=== PATIENT | female | born 1950 | race African-American/Black ===

== ENCOUNTER 2016-05-10 08:36 | Emergency (ER) | payer OTHER, BC ==
[~2016-05-10] VITALS: Ht 160 cm; Wt 112.0 kg
[~2016-05-10 08:36] MED LIST: ADALAT CC 60 MG60 MG PO; ADVAIR 250/501 DISK IH; ALLERGY RELIEF10 M5 PO; ASPIR-LOW81 MG PO; ATARAX,VISTARIL25 MG PO; BABY ASPIRIN81 M1 PO; BYSTOLIC10 MG PO; CARDIZEM CD,CA360 MG PO; CARDIZEM30 MG PO; CLONIDINE HCL0.1 MG PO; COREG6.25 M1 PO; CYCLOBENZAPRINE10 MG PO; DIOVAN HCT 3201 EAC1 PO; FLAGYL250 MG PO; GLYBURID-METFO1 EAC3 PO; GLYBURIDE5 MG PO; HYDROCHLOROTHIA25 MG PO; HYDROCODON-ACE1 EAC2 PO; ISOSORBIDE MON120 MG PO; METOPROLOL SUCC50 MG PO; NAPROSYN500 MG PO; NAPROXEN500 MG PO; NIFEDIPINE ER30 MG PO; NORCO 5/3251 TABLET PO; NORMODYNE,TRAN200 MG PO; PERCOCET 5/31 TABLET PO; PROAIR HFA8.5 GM IH; RANITIDINE HCL150 M1 PO; SINGULAIR10 MG PO; SYMBICORT60 INHALAT IH; TRADJENTA5 MG PO; TRANDATE200 MG PO; VALSARTAN320 MG PO; ZOCOR10 MG PO
[2016-05-10 09:42] LABS: HEMATOCRIT 31.7 % (36.0-46.0); MCH 28.9 PG (29.0-34.0); MCHC 31.5 G/DL (30.0-36.0); MCV 91.6 FL (83-99); MEAN PLAT.VOLUME 9.9 uM^3 (9.5-12.4); PLATELET COUNT 234 K/uL (156-360); RBC DIS.WIDTH-CV 14.5 % (11.8-14.6); RBC DIS.WIDTH-SD 46.3 % (39-53); RED BLOOD COUNT 3.46 M/uL (3.80-5.20)
[2016-05-10 09:51] LABS: CHLORIDE 110 mEq/L (99-109); POTASSIUM 4.6 mEq/L (3.7-5.4); SODIUM 141 mEq/L (136-147)
[2016-05-10 09:53] LABS: GLUCOSE 151 mg/dL (70-99)
[2016-05-10 09:55] LABS: ANION GAP 8 MEQ/L (2-14); TOTAL BILIRUBIN 0.3 mg/dL (0.0-1.0)
[2016-05-10 09:57] LABS: ALKALINE PHOSPHATASE 94 IU/L (3-129); GFR ESTIMATE (CALCULATED) 45 mL/min/
[2016-05-10 09:58] LABS: UREA NITROGEN (BUN) 35 mg/dL (9-23)
[2016-05-10 09:59] LABS: ADD MIUA? YES; BILIRUBIN NEGATIVE; BLOOD NEGATIVE; COLOR STRAW ((YELLOW)); GLUCOSE (STRIP) NEGATIVE; KETONES NEGATIVE; LEUKOCYTES NEGATIVE; NITRITE NEGATIVE; PROTEIN (STRIP) 100; SPECIFIC GRAVITY 1.012 (1.000-1.030); UROBILINOGEN 0.2 MG/DL (0.2-1.0)
[2016-05-10 10:00] LABS: LIPASE 24 U/L (1.0-51.0)
[2016-05-10 10:04] LABS: BACTERIA RARE /HPF; EPITHELIAL CELLS 1+ /HPF; MUCUS TRACE /LPF; RED BLOOD CELLS NONE SEEN /HPF (0-5); WHITE BLOOD CELLS 0-5 /HPF (0-5)
[2016-05-10 10:05] LABS: TROP-I INTERPRETATION NEGATIVE; TROPONIN-I < 0.01 ng/mL (0.0-0.30)
[2016-05-10] MEDS ORDERED: HYDROCHLOROTHIA25 MG PO (10:22)
[2016-05-10] MEDS ORDERED: TYLENOL ARTHRI650 MG PO (10:22)
[2016-05-10] MEDS ORDERED: ZOCOR10 MG PO (10:23)
[2016-05-10 12:42] VITALS: BP 215/95
== END 2016-05-10 12:42 | disposition home or self-care (01) ==
LOC: EME → EDBD 08:36 → EME 08:36
PROVIDERS: Emergency Medicine
DX: S20.219A Contusion of unspecified front wall of thorax, initial encounter (principal); S00.81XA Abrasion of other part of head, initial encounter; V49.40XA Driver injured in collision with unspecified motor vehicles in traffic accident, initial encounter; E11.9 Type 2 diabetes mellitus without complications; E78.5 Hyperlipidemia, unspecified; I10 Essential (primary) hypertension; I25.2 Old myocardial infarction
CPT/HCPCS: 71020; 80053; 81003; 83690; 84484; 85027; 93005; 99281; 99285

== ENCOUNTER 2017-08-27 18:12 | Emergency (ER) | payer OTHER, BC ==
[~2017-08-27] VITALS: Ht 162.6 cm; Wt 109.6 kg
[~2017-08-27 18:12] MED LIST changes: +TYLENOL ARTHRI650 MG PO
[2017-08-27 19:14] LABS: HEMATOCRIT 35.6 % (36.0-46.0); HEMOGLOBIN 11.7 G/DL (11.9-15.5); MCH 29.8 PG (29.0-34.0); MCHC 32.9 G/DL (30.0-36.0); MCV 90.8 FL (83-99); PLATELET COUNT 214 K/uL (156-360); RBC DIS.WIDTH-SD 46.7 % (39-53); RED BLOOD COUNT 3.92 M/uL (3.80-5.20); WHITE BLOOD COUNT 9.9 K/uL (4.1-10.2)
[2017-08-27 19:24] LABS: CHLORIDE 106 mEq/L (99-109); POTASSIUM 4.6 mEq/L (3.7-5.4); SODIUM 141 mEq/L (136-147)
[2017-08-27 19:26] LABS: GLUCOSE 159 mg/dL (70-99); TOTAL PROTEIN 7.3 g/dL (6.4-8.3)
[2017-08-27 19:28] LABS: TOTAL BILIRUBIN 0.5 mg/dL (0.0-1.0)
[2017-08-27 19:30] LABS: ALKALINE PHOSPHATASE 101 IU/L (3-129); CREATININE 1.9 mg/dL (0.6-1.3); GFR ESTIMATE (CALCULATED) 34 mL/min/
[2017-08-27 19:31] LABS: UREA NITROGEN (BUN) 31 mg/dL (9-23)
[2017-08-27 19:32] LABS: AST (GOT) 21 IU/L (2-34)
[2017-08-27 19:33] LABS: ALT (GPT) 21 IU/L (3-49)
[2017-08-27 19:37] LABS: TROP-I INTERPRETATION NEGATIVE; TROPONIN-I 0.03 ng/mL (0.0-0.30)
[2017-08-27 20:15] LABS: APPEARANCE CLEAR ((CLEAR)); BILIRUBIN NEGATIVE; BLOOD SMALL; COLOR STRAW ((YELLOW)); GLUCOSE (STRIP) 50; KETONES NEGATIVE; LEUKOCYTES NEGATIVE; NITRITE NEGATIVE; PROTEIN (STRIP) >=500; SPECIFIC GRAVITY 1.015 (1.000-1.030); UROBILINOGEN 0.2 MG/DL (0.2-1.0)
[2017-08-27 20:26] LABS: BACTERIA RARE /HPF; EPITHELIAL CELLS RARE /HPF; MUCUS TRACE /LPF; RED BLOOD CELLS 0-5 /HPF (0-5); UCUL ADDED? NO; WHITE BLOOD CELLS 0-5 /HPF (0-5)
[2017-08-27] MEDS ORDERED: PREDNISONE20 MG PO (20:50)
[2017-08-27] MEDS ORDERED: PROVENTIL,2.5 MG/3 M IH (21:28)
[2017-08-27] MEDS ORDERED: VENTOLIN HFA18 GM IH (21:28)
[2017-08-27] MEDS ORDERED: TESSALON200 MG PO (21:29)
[2017-08-27 21:57] VITALS: BP 168/79
== END 2017-08-27 21:58 | disposition home or self-care (01) ==
LOC: EME 18:12
PROVIDERS: Nurse Practitioner Family
DX: J45.901 Unspecified asthma with (acute) exacerbation (principal); R50.9 Fever, unspecified; I10 Essential (primary) hypertension; E11.9 Type 2 diabetes mellitus without complications; R00.0 Tachycardia, unspecified; I25.2 Old myocardial infarction; E78.5 Hyperlipidemia, unspecified; Z79.84 Long term (current) use of oral hypoglycemic drugs; Z79.82 Long term (current) use of aspirin
CPT/HCPCS: 71045; 80053; 81003; 83605; 84484; 85027; 87040; 93005; 94640; 99281; 99285; J1885; J2405; J7512

== ENCOUNTER 2017-11-04 09:08 | Emergency (ER) | payer OTHER, BC ==
[~2017-11-04] VITALS: Ht 160 cm; Wt 108.5 kg
[~2017-11-04 09:08] MED LIST changes: +ADVAIR 500/501 DISK IH; +ALLOPURINOL100 MG PO; +AVAPRO300 MG PO; +PREDNISONE20 MG PO; +PROAIR RESPICL90 MCG IH; +PROVENTIL,2.5 MG/3 M IH; +TESSALON200 MG PO; +TRAMADOL HCL50 MG PO; +VENTOLIN HFA18 GM IH
[2017-11-04 09:43] LABS: HEMATOCRIT 33.4 % (36.0-46.0); HEMOGLOBIN 10.6 G/DL (11.9-15.5); MCH 29.2 PG (29.0-34.0); MCHC 31.7 G/DL (30.0-36.0); PLATELET COUNT 230 K/uL (156-360); RBC DIS.WIDTH-CV 14.1 % (11.8-14.6); RBC DIS.WIDTH-SD 47.8 % (39-53); RED BLOOD COUNT 3.63 M/uL (3.80-5.20); WHITE BLOOD COUNT 6.9 K/uL (4.1-10.2)
[2017-11-04 10:04] LABS: CHLORIDE 107 mEq/L (99-109); POTASSIUM 4.6 mEq/L (3.7-5.4); SODIUM 139 mEq/L (136-147)
[2017-11-04 10:05] LABS: GLUCOSE 120 mg/dL (70-99)
[2017-11-04 10:09] LABS: CREATININE 1.7 mg/dL (0.6-1.3); GFR ESTIMATE (CALCULATED) 39 mL/min/
[2017-11-04 10:10] LABS: UREA NITROGEN (BUN) 44 mg/dL (9-23)
[2017-11-04 11:05] LABS: APPEARANCE CLEAR ((CLEAR)); BILIRUBIN NEGATIVE; BLOOD NEGATIVE; COLOR YELLOW ((YELLOW)); GLUCOSE (STRIP) NEGATIVE; KETONES NEGATIVE; LEUKOCYTES NEGATIVE; NITRITE NEGATIVE; PROTEIN (STRIP) >=500; SPECIFIC GRAVITY 1.014 (1.000-1.030); UROBILINOGEN 0.2 MG/DL (0.2-1.0)
[2017-11-04 11:07] LABS: BACTERIA RARE /HPF; EPITHELIAL CELLS RARE /HPF; MUCUS NONE SEEN /LPF; RED BLOOD CELLS 0-5 /HPF (0-5); UCUL ADDED? NO; WHITE BLOOD CELLS 0-5 /HPF (0-5)
[2017-11-04] MEDS ORDERED: FLEXERIL10 MG PO (11:48)
[2017-11-04 13:39] VITALS: BP 241/111
== END 2017-11-04 13:40 | disposition home or self-care (01) ==
LOC: EME 09:08
PROVIDERS: Nurse Practitioner Family
DX: R10.9 Unspecified abdominal pain (principal); K57.90 Diverticulosis of intestine, part unspecified, without perforation or abscess without bleeding; E11.9 Type 2 diabetes mellitus without complications; I10 Essential (primary) hypertension; E78.5 Hyperlipidemia, unspecified; M06.9 Rheumatoid arthritis, unspecified; I25.2 Old myocardial infarction; G47.30 Sleep apnea, unspecified; M79.7 Fibromyalgia; J45.909 Unspecified asthma, uncomplicated; Z79.51 Long term (current) use of inhaled steroids; Z79.82 Long term (current) use of aspirin; Z79.891 Long term (current) use of opiate analgesic; Z87.442 Personal history of urinary calculi; Z96.652 Presence of left artificial knee joint; Z96.642 Presence of left artificial hip joint; Z90.710 Acquired absence of both cervix and uterus
CPT/HCPCS: 74176; 80048; 81003; 85027; 99281; 99284; J2405; J3010; J7030

== ENCOUNTER → 2017-11-08 | Outpatient (CLI) | payer OTHER, BC ==
[~2017-11-08] MED LIST changes: +FLEXERIL10 MG PO
[2017-11-08 08:24] LABS: BASOPHIL (%) 0.4 % (0-1); EOSINOPHIL (%) 5.6 % (0-5); EOSINOPHIL COUNT 0.3 K/uL (0-0.3); HEMATOCRIT 34.4 % (36.0-46.0); IMMATURE GRANULOCYTE (%) 0.2 % (0.0-0.7); LYMPHOCYTE (%) 31.3 % (15-42); LYMPHOCYTE COUNT 1.8 K/uL (1.0-2.8); MCH 29.2 PG (29.0-34.0); MCV 91.2 FL (83-99); MONOCYTE (%) 8.6 % (3-12); MONOCYTE COUNT 0.5 K/uL (0-0.8); NEUTROPHIL (%) 53.9 % (45-76); NEUTROPHIL COUNT 3.1 K/uL (1.8-6.4); PLATELET COUNT 290 K/uL (156-360); RBC DIS.WIDTH-CV 13.8 % (11.8-14.6); RBC DIS.WIDTH-SD 46.3 % (39-53); RED BLOOD COUNT 3.77 M/uL (3.80-5.20); WHITE BLOOD COUNT 5.7 K/uL (4.1-10.2)
[2017-11-08 08:32] LABS: PTT 31.2 SEC (25-37)
== END | disposition home or self-care (01) ==
LOC: OPR 11-07 09:00 → EDSTATUS 08:00
PROVIDERS: Internal Medicine Hematology & Oncology
PROC: 07DR3ZX Extraction of Iliac Bone Marrow, Percutaneous Approach, Diagnostic (ICD-10-PCS; principal; 2017-11-08)
PROC: BQ201ZZ Computerized Tomography (CT Scan) of Right Hip using Low Osmolar Contrast (ICD-10-PCS; principal; 2017-11-08)
PROC: 0JB73ZX Excision of Back Subcutaneous Tissue and Fascia, Percutaneous Approach, Diagnostic (ICD-10-PCS; principal; 2017-11-08)
PROC: 079T3ZX Drainage of Bone Marrow, Percutaneous Approach, Diagnostic (ICD-10-PCS; principal; 2017-11-08)
DX: D47.2 Monoclonal gammopathy (principal); N04.9 Nephrotic syndrome with unspecified morphologic changes; G47.33 Obstructive sleep apnea (adult) (pediatric); J45.909 Unspecified asthma, uncomplicated; I10 Essential (primary) hypertension; M06.9 Rheumatoid arthritis, unspecified; M79.7 Fibromyalgia; Z79.82 Long term (current) use of aspirin
CPT/HCPCS: 77012; 85025; 85610; 85730; 88305; J0360; J3010